=== PATIENT | female | born 1955 | race African-American/Black ===

== ENCOUNTER 2016-07-31 22:31 | Emergency (ER) | payer OTHER ==
[~2016-07-31] VITALS: Ht 160 cm; Wt 70.8 kg
[~2016-07-31 22:31] MED LIST: AMLODIPINE BESY10 MG PO; BENTYL20 MG PO; FIORICET,ESG1 TABLET PO; LORTAB 5-325 M1 EACH PO; MEDROL DOSEPAK4 MG PO; NARCAN4 MG NS; PAROXETINE HCL20 MG PO; PREDNISOLONE5 MG PO; PROMETHAZINE12.5 M1 PO; SKELAXIN800 MG PO; TYLENOL WITH C1 EACH PO
[2016-07-31 22:55] LABS: CREATININE 0.8 mg/dL (0.6-1.3); POTASSIUM 3.7 mEq/L (3.7-5.4)
[2016-07-31 23:28] LABS: EOSINOPHIL (%) 0.7 % (0-5); EOSINOPHIL COUNT 0.1 K/uL (0-0.3); IMMATURE GRANULOCYTE COUNT 0.1 K/uL; INSTRUMENT ABS NEUTROPHIL CT 11.3 K/uL; LYMPHOCYTE COUNT 1.5 K/uL (1.0-2.8); MCH 29.8 PG (29.0-34.0); MCHC 31.8 G/DL (30.0-36.0); MCV 93.6 FL (83-99); MEAN PLAT.VOLUME 10.4 uM^3 (9.5-12.4); MONOCYTE (%) 4.9 % (3-12); MONOCYTE COUNT 0.7 K/uL (0-0.8); NEUTROPHIL (%) 82.4 % (45-76); NEUTROPHIL COUNT 11.3 K/uL (1.8-6.4); PLATELET COUNT 221 K/uL (156-360); RBC DIS.WIDTH-CV 12.6 % (11.8-14.6); RBC DIS.WIDTH-SD 43.5 % (39-53); RED BLOOD COUNT 4.06 M/uL (3.80-5.20); WHITE BLOOD COUNT 13.7 K/uL (4.1-10.2)
[2016-07-31 23:35] LABS: PCO2 < 19 mm Hg (35-45); pH 7.31 (7.35-7.45)
[2016-07-31 23:37] LABS: COMMENTS - BLOOD GASES VENOUS SAMPLE; DEVICE NC; O2 FLOW 2 L/MIN; PO2 < 32 mm Hg (80-100); SITE RB
[2016-07-31 23:39] LABS: CHLORIDE 106 mEq/L (99-109); POTASSIUM 4.1 mEq/L (3.7-5.4); SODIUM 140 mEq/L (136-147)
[2016-07-31 23:41] LABS: GLUCOSE 206 mg/dL (70-99)
[2016-07-31 23:42] LABS: ANION GAP 15 MEQ/L (2-14)
[2016-07-31 23:43] LABS: TOTAL BILIRUBIN 0.9 mg/dL (0.0-1.0)
[2016-07-31 23:44] LABS: ALKALINE PHOSPHATASE 72 IU/L (3-129)
[2016-07-31 23:45] LABS: GFR ESTIMATE (CALCULATED) > 59 mL/min/
[2016-07-31 23:46] LABS: UREA NITROGEN (BUN) 14 mg/dL (9-23)
[2016-07-31 23:48] LABS: TROP-I INTERPRETATION NEGATIVE; TROPONIN-I < 0.01 ng/mL (0.0-0.30)
[2016-08-01] VITALS (10 sets, daily range): BP systolic 88–128; BP diastolic 57–93
[2016-08-01 00:23] LABS: INTER. NORMALIZED RATIO 1.1; PROTHROMBIN TIME 11.1 (9.2-11.2)
[2016-08-01 01:02] LABS: HEMATOCRIT 30.5 % (36.0-46.0); MCV 92.7 FL (83-99)
[2016-08-01 01:38] LABS: ADD MIUA? YES; BILIRUBIN NEGATIVE; BLOOD MODERATE; COLOR YELLOW ((YELLOW)); GLUCOSE (STRIP) 50; KETONES NEGATIVE; LEUKOCYTES NEGATIVE; NITRITE NEGATIVE; PROTEIN (STRIP) 30; UROBILINOGEN 0.2 MG/DL (0.2-1.0)
[2016-08-01 01:43] LABS: BACTERIA NONE SEEN /HPF; EPITHELIAL CELLS RARE /HPF; MUCUS TRACE /LPF; RED BLOOD CELLS 0-5 /HPF (0-5); UCUL ADDED? NO; WHITE BLOOD CELLS 0-5 /HPF (0-5)
[2016-08-01 01:55] LABS: SPECIFIC GRAVITY 1.084 (1.000-1.030)
[2016-08-01 03:22] LABS: HEMATOCRIT 30.5 % (36.0-46.0); MCV 92.4 FL (83-99)
== END 2016-08-01 06:12 | disposition short-term general hospital (02) ==
LOC: EME → EDBD 22:31 → EME 22:31
PROVIDERS: Emergency Medicine
DX: S36.892A Contusion of other intra-abdominal organs, initial encounter (principal); R57.1 Hypovolemic shock; I82.402 Acute embolism and thrombosis of unspecified deep veins of left lower extremity; D86.9 Sarcoidosis, unspecified; W10.9XXA Fall (on) (from) unspecified stairs and steps, initial encounter; Z86.711 Personal history of pulmonary embolism; R55 Syncope and collapse; I95.9 Hypotension, unspecified; F17.200 Nicotine dependence, unspecified, uncomplicated
CPT/HCPCS: 36600; 71010; 71275; 74176; 74177; 80047; 80053; 81003; 82803; 83605; 84484; 85014; 85018; 85025; 85610; 85730; 86900; 86901; 86920; 87040; 93005; 93971; 99281; 99285; J1170; J2405; J2997; J3010; J3370; J7050; P9016; P9017; P9035